=== PATIENT | female | born 1970 | race Caucasian/White ===

== ENCOUNTER → 2020-09-30 | Outpatient (CLI) | payer OTHER ==
[~2020-09-30] VITALS: Ht 170.2 cm; Wt 67.1 kg
[~2020-09-30] MED LIST: AMBIEN 10 MG TA10 MG PO; BACTRIM DS TAB1 EACH PO; CYMBALTA60 MG; HYDROCODON-ACE1 EAC5 PO; JARDIANCE10 MG PO; LEXAPRO20 MG PO; VICODIN; birth control pills
[2020-09-30 13:56] VITALS: BP 138/91
--- NOTE | 2020-09-30 14:07 | NUR ---
Pain Clinic Assessment: 1. History of Osteoarthritis: back History of Rheumatoid Arthritis: Not Applicable 2. Height: 5 ft. 7 in. 170.2 cm. Weight: 148.0 lb. oz. 67.132 kg. Patient's BMI: 23.2 3. Vital Signs: BP: 138/91 Pulse: 99 Resp: 14 Temp: 02 Sat: 100 ECG Mon: 4. Pain Intensity: 7 5. Fall Risk: Dizziness: N Needs help standing or walking: N Fallen in the last 3 months: N Fall risk comments: 6. Patient on Blood Thinner: None 7. History of Hypertension: N 8. Opioid Therapy greater than 6 weeks: Y Opiate Contract Signed: 9. Risk Assessment Tool Provided: low-1 10. Functional Assessment Tool: 48/ 11. Recreational Drug Use: Never Drug Type: Tobacco Use: Former Smoker Tobacco Type: Amount or Packs/day: How Many Years: Alcohol Use: Yes Frequency: Weekly Quant: 3-4
== END | disposition home or self-care (01) ==
LOC: PAIN 06:53
PROVIDERS: ATTEND Anesthesiology Pain Medicine
DX: M54.16 Radiculopathy, lumbar region (principal); G89.29 Other chronic pain; Z98.890 Other specified postprocedural states; Z79.899 Other long term (current) drug therapy; Z87.891 Personal history of nicotine dependence; Z79.891 Long term (current) use of opiate analgesic

== ENCOUNTER → 2021-04-21 | Outpatient (CLI) | payer OTHER ==
[~2021-04-21] VITALS: Ht 170.2 cm; Wt 71.7 kg
[~2021-04-21] MED LIST changes: +GLIPIZIDE5 MG PO
[2021-04-21 11:17] VITALS: BP 138/97
--- NOTE | 2021-04-21 11:59 | NUR ---
Pain Clinic Assessment: 1. History of Osteoarthritis: back History of Rheumatoid Arthritis: Not Applicable 2. Height: 5 ft. 7 in. 170.2 cm. Weight: 158.0 lb. oz. 71.668 kg. Patient's BMI: 24.7 3. Vital Signs: BP: 138/97 Pulse: 68 Resp: 14 Temp: 02 Sat: 100 ECG Mon: 4. Pain Intensity: 6 to 10 5. Fall Risk: Dizziness: N Needs help standing or walking: N Fallen in the last 3 months: N Fall risk comments: 6. Patient on Blood Thinner: None 7. History of Hypertension: N 8. Opioid Therapy greater than 6 weeks: Y Opiate Contract Signed: 9. Risk Assessment Tool Provided: low-1 10. Functional Assessment Tool: 48 11. Recreational Drug Use: Never Drug Type: Tobacco Use: Former Smoker Tobacco Type: Amount or Packs/day: How Many Years: Alcohol Use: Yes Frequency: Weekly Quant: 6
== END | disposition home or self-care (01) ==
LOC: PAIN 07:04
PROVIDERS: ATTEND Anesthesiology Pain Medicine
DX: M54.16 Radiculopathy, lumbar region (principal); M96.1 Postlaminectomy syndrome, not elsewhere classified; G89.29 Other chronic pain; Z87.891 Personal history of nicotine dependence; Z98.890 Other specified postprocedural states; Z79.899 Other long term (current) drug therapy